=== PATIENT | male | born 1970 | race Caucasian/White ===

== ENCOUNTER → 2017-04-19 | Outpatient (CLI) | payer BC | END | disposition home or self-care (01) | LOC: CVU 11:51 | PROVIDERS: ATTEND Internal Medicine Cardiovascular Disease | DX: I48.91 Unspecified atrial fibrillation (principal); I34.0 Nonrheumatic mitral (valve) insufficiency; I10 Essential (primary) hypertension; F17.210 Nicotine dependence, cigarettes, uncomplicated | CPT/HCPCS: 93306 ==

== ENCOUNTER 2017-06-29 09:17 | Observation (INO) | payer BC ==
[~2017-06-29] VITALS: Ht 175.3 cm; Wt 71.9 kg
[2017-06-29] MEDS ORDERED: SODIUM CHLORIDE 0.9% 1,000 ML IV SCH (09:31)
[2017-06-29 09:49] VITALS: BP 138/96
[2017-06-29] MEDS ORDERED: OXYC10TA6 PO (09:57)
[2017-06-29] MEDS ORDERED: METO-95 PO (09:57)
[2017-06-29] MEDS ORDERED: APIX5TAB PO (09:57)
[2017-06-29] MEDS ORDERED: PLEASE ENTER HEIGHT AND WEIGHT MC SCH (10:00)
[2017-06-29] MEDS ORDERED: PLEASE ENTER ALLERGIES MC SCH ×2 (10:00)
[2017-06-29 10:15] LABS: HEMATOCRIT 50.6 % (39.2-51.8); WHITE BLOOD COUNT 6.2 x10^3/uL (3.4-10)
[2017-06-29 11:23] LABS: ASPARTATE AMINO TRANSFERASE 32 U/L (15-37); BLOOD UREA NITROGEN 10 mg/dL (7-18)
[2017-06-29] MEDS ORDERED: LIDOCAINE 2%, 20ML ONE (12:36)
[2017-06-29] MEDS ORDERED: HEPARIN 1,000 UNITS/ML, 10ML ONE (12:36)
[2017-06-29] MEDS ORDERED: PROTAMINE SULFATE 10 MG/ML, 5ML ONE (12:36)
[2017-06-29] MEDS ORDERED: MIDAZOLAM 1 MG/ML, 5ML ONE (12:39)
[2017-06-29] MEDS ORDERED: FENTANYL PF 100 MCG/2ML ONE (12:40)
[2017-06-29] MEDS ORDERED: SUCCINYLCHOLINE 20 MG/ML, 10ML ONE (12:43)
[2017-06-29] MEDS ORDERED: ONDANSETRON 2MG/ML, 2ML ONE (12:43)
[2017-06-29] MEDS ORDERED: ROCURONIUM 10 MG/ML ONE (12:43)
[2017-06-29] MEDS ORDERED: DEXAMETHASONE 4 MG/ML, 1ML ONE (12:43)
[2017-06-29] MEDS ORDERED: PROPOFOL 10 MG/ML, 20ML ONE (12:43)
[2017-06-29] MEDS ORDERED: ZOLPIDEM 5MG TABLET PO PRN (14:30)
[2017-06-29] MEDS ORDERED: ACETAMINOPHEN 325 MG TABLET PO PRN ×2 (14:30→15:00)
[2017-06-29] MEDS ORDERED: MIDAZOLAM 1 MG/ML, 2ML IV PRN (15:00)
[2017-06-29] MEDS ORDERED: hydrALAzine 20 MG/ML, 1ML IV PRN (15:00)
[2017-06-29] MEDS ORDERED: LABETALOL 5MG/ML, 20ML IV PRN (15:00)
[2017-06-29] MEDS ORDERED: FENTANYL PF 100 MCG/2ML IV PRN (15:00)
[2017-06-29] MEDS ORDERED: PROMETHAZINE 25 MG/ML, 1ML IV PRN (15:00)
[2017-06-29] MEDS ORDERED: ONDANSETRON 2MG/ML, 2ML IVPush PRN (15:00)
[2017-06-29] MEDS ORDERED: OXYcodone 5 MG/5 ML ORAL.SOL UDC PO PRN (15:00)
[2017-06-29] MEDS ORDERED: ALBUTEROL SULFATE 2.5 MG/3 ML NPPB PRN (15:00)
[2017-06-29] MEDS ORDERED: HYDROmorphone 1 MG/ML, 1ML IV PRN (15:00)
[2017-06-29] MEDS ORDERED: MEPERIDINE/PF 25MG/0.5ML IVPush PRN (15:00)
[2017-06-29] MEDS: APIXABAN 5 MG TABLET PO SCH (15:52)
[2017-06-29 19:13] VITALS: BP 160/95
[2017-06-29] MEDS: OXYcodone IR 5MG TABLET PO PRN (20:07)
[2017-06-30 01:00] VITALS: BP 138/82
[2017-06-30] MEDS: OXYcodone IR 5MG TABLET PO PRN (06:16)
[2017-06-30 08:00] VITALS: BP 124/84
[2017-06-30] MEDS: APIXABAN 5 MG TABLET PO SCH (08:28)
[2017-06-30] MEDS ORDERED: METOPROLOL SUCCINATE 100 MG TAB.ER.24H PO SCH (09:00)
== END 2017-06-30 11:56 | disposition home or self-care (01) ==
LOC: CACL 09:17 → ORIP 14:20 → 5SO 16:27
PROVIDERS: ADMIT Internal Medicine Cardiovascular Disease; ATTEND Internal Medicine Cardiovascular Disease
DX: I48.91 Unspecified atrial fibrillation (principal); I48.92 Unspecified atrial flutter
CPT/HCPCS: 36415; 80053; 85025; 85347; 85610; 93308; 93321; 93325; 93613; 93656; 93662; C1730; C1731; C1732; C1759; C1766; C1893; C1894; G0378; J0330; J1100; J1644; J2250; J2405; J2704; J2720; J3010; J3490

== ENCOUNTER → 2017-09-24 | Outpatient (CLI) | payer BC ==
[~2017-09-24] MED LIST: APIX5TAB PO; METO-95 PO; OXYC10TA6 PO
== END | disposition home or self-care (01) ==
LOC: CFH 15:11
PROVIDERS: ATTEND Internal Medicine Cardiovascular Disease
DX: J90 Pleural effusion, not elsewhere classified (principal); I48.91 Unspecified atrial fibrillation; Z98.890 Other specified postprocedural states
CPT/HCPCS: 71020